=== PATIENT | male | born 1970 | race Caucasian/White ===

== ENCOUNTER 2017-10-10 06:06 | Day surgery (SDC) | payer MEDICARE ==
[2017-10-10] MEDS ORDERED: PROPOFOL 200 MG/20 ML VIAL IV ONE (06:07)
[2017-10-10] MEDS ORDERED: LACTATED RINGERS 1,000 ML ONE (06:21)
--- NOTE | 2017-10-10 10:27 | OP ---
DATE OF PROCEDURE: 10/10/17 PREPROCEDURE DIAGNOSIS: 1. Abdominal pain. POSTPROCEDURE DIAGNOSIS: 1. Normal endoscopic exam. PROCEDURE: 1. Esophagogastroduodenoscopy. SURGEON: Seamus Vera MD COMPLICATIONS: No immediate complications. SEDATION: The patient was sedated via IV propofol by the Anesthesia Department. CONSENT: Prior to the procedure, risks, benefits and alternatives to the therapy were discussed with the patient. The risks included bleeding, infection , perforation and . The patient agreed to the procedure and signed a consent. PREPROCEDURE ANESTHESIA ASSESSMENT: An examination revealed no contraindication to sedation. Airway examination demonstrated a Mallampati class type 2, ASA grade assessment type 2. Throughout the procedure, the patient's blood pressure, pulse and oxygen saturation were monitored continuously. PROCEDURE: The patient was placed in the left lateral decubitus position. Bite block was placed in the mouth between the teeth. The Olympus endoscope was introduced through the oropharynx, esophagus, stomach and the second portion of the duodenum. The scope was retracted and the mucosa visualized. The entirety of the exam was performed under direct visualization. Retroflexion was performed in the stomach. The patient tolerated the procedure well. FINDINGS: 1. The esophagus was entirely normal. 2. The stomach was normal. 3. The duodenum was normal. IMPRESSION: 1. Normal endoscopic examination of the upper GI tract. RECOMMENDATION: 1. Return the patient home. 2. Resume previous diet. 3. Perform upper endoscopic ultrasound at appointment to be scheduled. 4. Absolute cessation of alcohol use and smoking. 5. The findings and recommendations were discussed with the patient and the patient's family. #[id number] [facility]
[2017-10-10 11:26] VITALS: BP 138/90; TEMP 97.2; O2SAT 100
== END 2017-10-10 10:05 | disposition home or self-care (01) ==
LOC: AMB 06:06 → LAB.O 10:05
PROVIDERS: ATTEND Internal Medicine Gastroenterology
DX: R10.11 Right upper quadrant pain (principal); G89.29 Other chronic pain; K21.9 Gastro-esophageal reflux disease without esophagitis; J44.9 Chronic obstructive pulmonary disease, unspecified; F17.210 Nicotine dependence, cigarettes, uncomplicated; Z80.0 Family history of malignant neoplasm of digestive organs; Z79.899 Other long term (current) drug therapy
CPT/HCPCS: 00740; 36415; 43235; 80076; 86705; 86706; 86803; 87340; J3490; J7120